=== PATIENT | female | born 1945 | race Caucasian/White ===

== ENCOUNTER 2023-02-25 07:45 | Day surgery (SDC) | payer OTHER ==
[2023-02-24 11:35] VITALS: BMI 27.4
[2023-02-25] MEDS ORDERED: PROPOFOL 120 ML ONE (08:00)
[2023-02-25 08:05] VITALS: RESP 18
[2023-02-25 09:57] VITALS: TEMP 97.4
[2023-02-25 10:05] VITALS: BP 116/70; PULSE 72
== END 2023-02-25 10:34 | disposition home or self-care (01) ==
LOC: FASU-ENDO 07:45
PROVIDERS: ATTEND Internal Medicine Gastroenterology
PROC: 0DJD8ZZ Inspection of Lower Intestinal Tract, Via Natural or Artificial Opening Endoscopic (ICD-10-PCS; principal; 2023-02-25 09:28)
DX: Z12.11 Encounter for screening for malignant neoplasm of colon (principal); K57.30 Diverticulosis of large intestine without perforation or abscess without bleeding; K64.1 Second degree hemorrhoids